=== PATIENT | female | born 1985 | race Caucasian/White ===

== ENCOUNTER 2016-04-13 10:26 | Inpatient (IN) | payer OTHER ==
[~2016-04-13] VITALS: Ht 154.9 cm; Wt 78.0 kg
[2016-04-13] VITALS (10 sets, daily range): BP systolic 93–102; BP diastolic 53–64; PULSE 89–109; RESP 18; TEMP 97.8–98.3; O2SAT 92–95
[2016-04-13] MEDS ORDERED: ACETAMINOPHEN 325 MG TAB PO ONE (11:15)
--- NOTE | 2016-04-13 11:27 | PD ---
HPI Chief Complaint Abdominal pain Travel History International Travel<30 Days: No Contact w/Intl Traveler<30Days: No Known Affected Area: No History of Present Illness HPI 30-year-old , presenting at 37.2 weeks gestation with increasing abdominal pain. OB physician is Dr. Liu. HPI: On Wednesday 04/11, she felt a gush of fluid. She went to Dr. Liu's office, and amnio assure was negative, and she had a closed cervix. Since this time she has been having intermittent lower abdominal pain. These became worse this morning at 1 AM. She says that they have increased in intensity, and have now become more frequent, occurring every 5-10 minutes. The pain radiates into her lower back. She denies any bloody show, gush of fluid, vaginal bleeding, or decreased movements. She is staying adequately hydrated, and drinking 6-8 glasses of water and Gatorade a day. She denies any fevers, chills, dysuria. She denies any blood in her urine. ROS: She has been noticing more frequent bowel movements, that are semi-formed. History Past Medical History Medical History: Denies Significant Hx Obstetric History Obstetric History Previous in 2009. Past Surgical History Surgical History: No Previous Surgery Family History Family History: Negative Social History Alcohol Use: No Tobacco Use: No Substance Abuse: No Allergies-Medications (Allergen,Severity, Reaction): Coded Allergies: No Known Allergies (Unverified , 04/13/16) Review of Systems Except as stated in HPI: all other systems reviewed are Neg Physical Exam Narrative GENERAL: Well-nourished, well-developed patient. SKIN: Warm and dry. HEAD: Normocephalic and atraumatic. EYES: No scleral icterus. No injection or drainage. ENT: No nasal drainage noted. Mucous membranes pink. Airway patent. NECK: Supple, trachea midline. No JVD. CARDIOVASCULAR: Regular rate and rhythm without murmurs, gallops, or rubs. RESPIRATORY: Breath sounds equal bilaterally. No accessory muscle use. BREASTS: Bilateral exam showed no masses , no retractions, no nipple discharge. ABDOMEN/GI: Abdomen soft, non-tender, bowel sounds present, no rebound, no guarding Gravid to 37 weeks size GENITOURINARY: Cervix is 1 cm, thick, posterior. No fluids draining/leakage. (Checked by RN). FHT's: Category: 1 Baseline: 165 Reactive: y Variability: moderate Decels: none TOCO: Periodic contractions EXTREMITIES: No cyanosis or edema. BACK: Nontender without obvious deformity. NEUROLOGICAL: Awake and alert. Motor and sensory grossly within normal limits. Data Data Orders Vital Signs (Adult) .ON ADMISSION (04/13/16 11:08) ^ Labor Status (04/13/16 11:08) Urinalysis - C+S If Indicated (04/13/16 11:08) ^ Non Stress Test (04/13/16 11:08) ^ Hydration (04/13/16 11:08) Lactated Ringer's 1000 Ml Inj (Lr 1000 M (04/13/16 11:08) Acetaminophen (Tylenol) (04/13/16 11:15) MDM Plan 30-year-old female presenting at 37.4 weeks gestation with worsening abdominal cramping. #IUP: Lower Abdominal Pain Afebrile, vital signs at goal, category 2 tracing ( tachycardia at 165, occasional decelerations), with moderate variability, + accelerations. Cervix was thick, closed, posterior. Periodic contractions on tocometry, no consistent pattern. * Tylenol 650 mg by mouth 1 * 1 L of lactated Ringer's * Check urinalysis for signs of infection #Non-Reassuring Strip Persist tachycardia to 165-170 bpm. Occasional decelerations. Periodic uterine contractions. Previous . Admit for Cesarian section 2/2 non-reassuring heart rate. We'll discuss with Dr. Enamorado. Diagnosis Diagnosis: Primary Impression: tachycardia affecting management of mother Amadeo Macdonald MD R2 Apr 13, 2016 11:27
[2016-04-13] MEDS: LACTATED RINGER'S 1000 ML INJ 1,000 ML IV SCH ×3 (11:30→21:05)
[2016-04-13 12:07] LABS: BACTERIA, URINE MANY /hpf; BLOOD, URINE NEG (NEG); COMMENT (UR) CULTURE INDICATED; CULTURE IF INDICATED CULTURE INDICATED; GLUCOSE,URINE NEG (NEG); KETONE, URINE 80 mg/dL (NEG); MUCUS URINE FEW /lpf (OCC); NITRITE,URINE NEG (NEG); SQUAMOUS EPITHELIAL CELL URINE 2 /hpf (0-5); TRANSITIONAL EPI CELLS, URINE <1 /hpf; URINE COLOR YELLOW (YELLW/STRAW)
[2016-04-13] MEDS ORDERED: LACTATED RINGER'S 1000 ML INJ 1,000 ML IV ONE (12:11)
[2016-04-13 12:24] LABS: AUTOMATED NEUTROPHIL # 12.8 TH/MM3 (1.8-7.7); BASOPHIL % 0.3 % (0.0-2.0); HEMATOCRIT 36.2 % (35.0-46.0); HEMO FLAGS DIFF FINAL; LYMPH % 4.9 % (9.0-44.0); LYMPHOCYTE # 0.7 TH/MM3 (1.0-4.8); MEAN CELL VOLUME 89.1 FL (80.0-100.0); MEAN CORPUSCULAR HEMOGLOBIN 30.2 PG (27.0-34.0); MEAN CORPUSCULAR HGB CONC 33.9 % (32.0-36.0); MONO % 6.7 % (0.0-8.0); NEUT % 88.1 % (16.0-70.0); PLATELET COUNT 202 TH/MM3 (150-450); RED BLOOD COUNT 4.07 MIL/MM3 (4.00-5.30); RED CELL DISTRIBUTION WIDTH 14.4 % (11.6-17.2); WHITE BLOOD COUNT 14.5 TH/MM3 (4.0-11.0)
--- NOTE | 2016-04-13 12:36 | HHI.HP ---
History & Physical H&P Patient Name: Jemima Olivo Unit Number: [id number] Date of : 1985 Patient Status: Admitted Inpatient Attending Doctor: Yoselyn Liu MD HPI HPI Chief Complaint Abdominal pain Travel History International Travel<30 Days: No Contact w/Intl Traveler<30Days: No Known Affected Area: No History of Present Illness HPI 30-year-old , presenting at 37.2 weeks gestation with increasing abdominal pain. OB physician is Dr. Liu. HPI: On Wednesday 04/11, she felt a gush of fluid. She went to Dr. Liu's office, and amnio assure was negative, and she had a closed cervix. Since this time she has been having intermittent lower abdominal pain. These became worse this morning at 1 AM. She says that they have increased in intensity, and have now become more frequent, occurring every 5-10 minutes. The pain radiates into her lower back. She denies any bloody show, gush of fluid, vaginal bleeding, or decreased movements. She is staying adequately hydrated, and drinking 6-8 glasses of water and Gatorade a day. She denies any fevers, chills, dysuria. She denies any blood in her urine. ROS: She has been noticing more frequent bowel movements, that are semi-formed. History (Limited) History Past Medical History Medical History: Denies Significant Hx Obstetric History Obstetric History Previous in 2009. Past Surgical History Surgical History: No Previous Surgery Family History Family History: Negative Social History Alcohol Use: No Tobacco Use: No Substance Abuse: No Allergies-Medications Allergies-Medications (Allergen,Severity, Reaction): Coded Allergies: No Known Allergies (Unverified , 04/13/16) ROS Review of Systems Except as stated in HPI: all other systems reviewed are Neg Physical Exam Physical Exam Narrative GENERAL: Well-nourished, well-developed patient. SKIN: Warm and dry. HEAD: Normocephalic and atraumatic. EYES: No scleral icterus. No injection or drainage. ENT: No nasal drainage noted. Mucous membranes pink. Airway patent. NECK: Supple, trachea midline. No JVD. CARDIOVASCULAR: Regular rate and rhythm without murmurs, gallops, or rubs. RESPIRATORY: Breath sounds equal bilaterally. No accessory muscle use. BREASTS: Bilateral exam showed no masses , no retractions, no nipple discharge. ABDOMEN/GI: Abdomen soft, non-tender, bowel sounds present, no rebound, no guarding Gravid to 37 weeks size GENITOURINARY: Cervix is 1 cm, thick, posterior. No fluids draining/leakage. (Checked by RN). FHT's: Category: 1 Baseline: 165 Reactive: y Variability: moderate Decels: none TOCO: Periodic contractions EXTREMITIES: No cyanosis or edema. BACK: Nontender without obvious deformity. NEUROLOGICAL: Awake and alert. Motor and sensory grossly within normal limits. Data Data Data Orders Vital Signs (Adult) .ON ADMISSION (04/13/16 11:08) ^ Labor Status (04/13/16 11:08) Urinalysis - C+S If Indicated (04/13/16 11:08) ^ Non Stress Test (04/13/16 11:08) ^ Hydration (04/13/16 11:08) Lactated Ringer's 1000 Ml Inj (Lr 1000 M (04/13/16 11:08) Acetaminophen (Tylenol) (04/13/16 11:15) MDM MDM Plan 30-year-old female presenting at 37.4 weeks gestation with worsening abdominal cramping. #IUP: Lower Abdominal Pain - 37.4 weeks gestation Afebrile, vital signs at goal, category 2 tracing ( tachycardia at 165, occasional decelerations), with moderate variability, + accelerations. Cervix was thick, closed, posterior. Periodic contractions on tocometry, no consistent pattern. * Tylenol 650 mg by mouth 1 * 1 L of lactated Ringer's * Check urinalysis for signs of infection # Non-reassuring Strip Persist tachycardia to 165-170 bpm. Occasional decelerations. Periodic uterine contractions. Admit for Cesarian section 2/2 non-reassuring strip. We'll discuss with Dr. Enamorado. Diagnosis Diagnosis: Primary Impression: tachycardia affecting management of mother Amadeo Macdonald MD R2 Apr 13, 2016 12:36
[2016-04-13] MEDS ORDERED: LACTATED RINGER'S 1000 ML INJ 1,000 ML IV SCH (12:41)
[2016-04-13] MEDS ORDERED: ceFAZolin 2 GM PREMIX 50 ML IV SCH (13:15)
[2016-04-13] MEDS ORDERED: ONDANSETRON HCL 4 MG/2 ML VIAL ONE (13:30)
[2016-04-13] MEDS ORDERED: MORPHINE SULFATE PF 5 MG/10 ML VIAL ONE (13:30)
[2016-04-13] MEDS ORDERED: ACETAMINOPHEN 1000 MG/100 ML VIAL IV ONE ×2 (13:30→15:00)
[2016-04-13] MEDS ORDERED: CITRIC ACID-SODIUM CITRATE LIQ 30 ML UDC PO SCH (13:45)
[2016-04-13] MEDS ORDERED: SIMETHICONE 80 MG CHEWABLE TAB PO PRN (15:00)
[2016-04-13] MEDS ORDERED: ZOLPIDEM TARTRATE 5 MG TAB PO PRN (15:00)
[2016-04-13] MEDS ORDERED: DOCUSATE SODIUM 50 MG/SENNA 8.6 MG TAB PO PRN (15:00)
[2016-04-13] MEDS ORDERED: SODIUM CHLORIDE 0.9% FLUSH 5 ML FLUSH IV PRN (15:00)
[2016-04-13] MEDS ORDERED: ONDANSETRON HCL 4 MG/2 ML VIAL IV PUSH PRN (15:00)
[2016-04-13] MEDS ORDERED: OXYTOCIN 30 UNITS-500ML PREMIX 500 ML IV ONE ×2 (15:00)
[2016-04-13] MEDS ORDERED: oxyCODONE/ACETAMINOPHEN 5 MG/325 MG TAB PO PRN ×2 (15:00)
--- NOTE | 2016-04-13 15:47 | MP ---
cc: Yoselyn LIU MD DATE OF SURGERY: 04/13/2016. PREOPERATIVE DIAGNOSIS: 1. Intrauterine at 37+ weeks. 2. Previous section. 3. Non-reassuring strip. POSTOPERATIVE DIAGNOSIS: 1. Intrauterine at 37+ weeks. 2. Previous section. 3. Non-reassuring strip. 4. Anterior placenta. OPERATIVE PROCEDURE PERFORMED: Repeat low transverse section. SURGEON: Yoselyn Liu MD. ANESTHESIA: Spinal. FINDINGS: ANESTHESIA: A normal male infant, Apgars 8 and 9. Weight 7 pounds 0 ounces. Vacuum x1. Cord around the shoulder loose. The placenta was anterior and it had to be cut through to get to the infant. COMPLICATIONS The complications were anterior placenta. ESTIMATED BLOOD LOSS: The blood loss was 600 mL. COUNTS: The counts were correct. CONDITION: The patient tolerated procedure well. She and the baby both went to the recovery room in good condition. INDICATIONS FOR THE PROCEDURE: This lady came in and was some uterine contractions. She was having tachycardia in the 170s and she also had several one to two minute decelerations. Since she had had a previous section, the choice was easy since her cervix was 1 cm and closed we decided to proceed with a repeat section. DESCRIPTION OF THE PROCEDURE IN DETAIL: Under an adequate level of anesthetic, she was prepped and draped for abdominal surgery. The old Pfannenstiel incision was removed and excised completely. Incision was taken down to the fascia. The fascia was taken off the rectus muscle by blunt and sharp dissection. Once this had been accomplished, the rectus muscles were gently stretched and the peritoneum entered under direct vision without incident. A bladder flap was created over the lower uterine segment and the bladder moved out of harms way. The incision over the uterus was made in a transverse manner and taken down in the midline until the uterine cavity was entered. The vertex was grasped and using suction, the was delivered with gentle fundal pressure. The hypopharynx and nasopharynx were suctioned and the cord was doubly clamped and cut and the was handed to the resuscitation team present. The placenta was removed manually. The uterus was curettaged twice with wet laps and irrigated with a moderate amount of fluid. The uterine incision was then repaired with 2-0 Vicryl in a running locking fashion, the second layer imbricating the first. Hemostasis was excellent. At this time, the uterus was delivered back into the abdomen. The rectus muscle was reapproximated with 0 Vicryl in an interrupted fashion. The fascia was repaired from lateral to midline with 0 Vicryl bilaterally with 0 Vicryl in a running fashion. Subcu was repaired with 3-0 Vicryl. The skin was repaired with a 4-0 Monocryl in a subcuticular fashion. Steri-Strips were applied. She tolerated the procedure well and was taken to the Recovery Room in good condition. R. MD JR [place]/RUBI /2:54 PM /3:37 PM
[2016-04-13] MEDS ORDERED: OXYTOCIN 30 UNITS-500ML PREMIX 500 ML ONE (15:48)
[2016-04-13] MEDS ORDERED: EPIDURAL-NO SYSTEMIC NARCOTICS XX PRN (17:30)
[2016-04-13] MEDS ORDERED: EPIDURAL-NALOXONE HCL 0.4 MG/ML AMP IV PRN (17:30)
[2016-04-13] MEDS ORDERED: EPIDURAL-DO NOT ADMINISTER ANTICOAGULANTS XX PRN (17:30)
[2016-04-13] MEDS ORDERED: EPIDURAL-DIPHENHYDRAMINE HCL 50 MG/ML VIAL IV PUSH PRN (17:30)
[2016-04-13] MEDS ORDERED: EPIDURAL-DIPHENHYDRAMINE HCL 50 MG CAP PO PRN (17:30)
--- NOTE | 2016-04-13 19:02 | HHI.DCPOC ---
Discharge Care Plan Diagnosis: (1) S/P section Your Health Problems Are: delivery Report Symptoms to Your Doctor -Temperate above 100.5 degrees -Redness, of incision or excessive or foul smelling drainage -Unusual pain or calf pain -Increased vaginal bleeding -Painful or difficulty urinating -Feelings of extreme sadness or anxiety after 2 weeks Goals to Promote Your Health * To prevent worsening of your condition and complications * To maintain your health at the optimal level Directions to Meet Your Goals Take your medications as prescribed Follow your dietary instruction Follow activity as directed Ensure plenty of rest for recovery Drink fluids for hydration Keep your appointments as scheduled Take your immunizations and boosters as scheduled If your symptoms worsen call your PCP, if no PCP go to Urgent Care Center or Emergency Room Smoking is Dangerous to Your Health. Avoid second hand smoke Call the 24-hour crisis hotline for domestic abuse at Criss Masters MD Apr 13, 2016 19:02
[2016-04-13] MEDS ORDERED: SODIUM CHLORIDE 0.9% FLUSH 5 ML FLUSH IV SCH (21:00)
[2016-04-14] MEDS ORDERED: OXYTOCIN 30 UNITS-500ML PREMIX 500 ML IV PRN (01:00)
[2016-04-14] MEDS: IBUPROFEN 600 MG TAB PO PRN ×2 (05:02→14:38)
[2016-04-14 05:26] LABS: AUTOMATED NEUTROPHIL # 9.7 TH/MM3 (1.8-7.7); BASOPHIL % 0.2 % (0.0-2.0); EOSINOPHIL % 0.1 % (0.0-4.0); HEMATOCRIT 29.1 % (35.0-46.0); HEMO FLAGS DIFF FINAL; LYMPH % 10.4 % (9.0-44.0); LYMPHOCYTE # 1.2 TH/MM3 (1.0-4.8); MEAN CELL VOLUME 87.2 FL (80.0-100.0); MEAN CORPUSCULAR HEMOGLOBIN 30.5 PG (27.0-34.0); MONO % 7.3 % (0.0-8.0); PLATELET COUNT 165 TH/MM3 (150-450); RED BLOOD COUNT 3.34 MIL/MM3 (4.00-5.30); RED CELL DISTRIBUTION WIDTH 14.4 % (11.6-17.2); WHITE BLOOD COUNT 11.8 TH/MM3 (4.0-11.0)
[2016-04-14] MEDS: LACTATED RINGER'S 1000 ML INJ 1,000 ML IV SCH (05:50)
[2016-04-14 07:00] VITALS: BP 79/51; PULSE 83; RESP 16; TEMP 97.8
--- NOTE | 2016-04-14 10:33 | HHI.OB ---
Subjective Post Operative Day: 1 Remarks s/p repeat CD with Dr. Liu Objective Vitals/I&O Vital Signs Date Time Temp Pulse Resp B/P Pulse Ox O2 Delivery O2 Flow Rate FiO2 04/14/16 07:00 97.8 04/14/16 07:00 83 16 79/51 04/13/16 16:00 98.3 04/13/16 15:52 94 04/13/16 15:45 93 04/13/16 15:45 18 102/64 93 04/13/16 15:28 105 18 99/53 92 04/13/16 15:13 89 18 102/60 95 04/13/16 14:50 97.8 04/13/16 12:25 105 04/13/16 12:24 98.3 103 93/59 04/13/16 12:20 105 04/13/16 12:15 109 Result Diagram: 04/14/16 0433 Objective Remarks GENERAL: Well-nourished, well-developed patient. CARDIOVASCULAR: Regular rate and rhythm without murmurs, gallops, or rubs. RESPIRATORY: Breath sounds equal bilaterally. No accessory muscle use. ABDOMEN/GI: Abdomen soft, non-tender, bowel sounds present. Incision: bandage clean, dry and intact. Fundus: Firm, non-tender at umbilicus. GENITOURINARY: Light bleeding. EXTREMITIES: No cyanosis or edema, non-tender, without signs of DVT. Medications and IVs Current Medications Medications (Trade) Dose Ordered Sig/Richard Route Start Time Stop Time Status Last Admin (Lr 1000 ml Inj) 1,000 ml @ 100 mls/hr Q10H IV 04/13/16 19:50 04/14/16 15:49 04/13/16 21:05 (NS Flush) 2 ml BID IV 04/13/16 21:00 (NS Flush) 2 ml UNSCH PRN IV 04/13/16 15:00 (Mylicon Chew) 80 mg QID PRN PO 04/13/16 15:00 (Motrin) 600 mg Q6H PRN PO 04/13/16 15:00 04/14/16 05:02 (Percocet 5-325 Mg) 1 tab Q4H PRN PO 04/13/16 15:00 (Percocet 5-325 Mg) 2 tab Q4H PRN PO 04/13/16 15:00 (Morena-Colace) 2 tab Q12H PRN PO 04/13/16 15:00 (Ambien) 5 mg HS PRN PO 04/13/16 15:00 (M-M-R Ii Inj) 0.5 ml ONCE ONCE SQ 04/14/16 16:00 04/14/16 16:01 (Boostrix Inj) 0.5 ml ONCE ONCE IM 04/14/16 16:00 04/14/16 16:01 (Zofran Inj) 4 mg Q6H PRN IV PUSH 04/13/16 15:00 Miscellaneous Information NO SYSTEMIC NARCOTICS TO BE GIVEN FO... UNSCH PRN XX 04/13/16 17:30 04/14/16 17:29 (Narcan Inj) 0.4 mg UNSCH PRN IV 04/13/16 17:30 04/14/16 17:29 (Benadryl Inj) 25 mg Q6H PRN IV PUSH 04/13/16 17:30 04/14/16 17:29 (Benadryl) 50 mg Q6H PRN PO 04/13/16 17:30 04/14/16 17:29 Miscellaneous Information ALL NURSING DEPARTMENTS UNSCH PRN XX 04/13/16 17:30 04/14/16 17:29 Assessment/Plan Problem List: (1) S/P section Assessment and Plan POD#1/PPD#1 routine care, doing well, eating, voiding, tolerating diet, pain well controlled BP's running low but pt asymptomatic, continue to monitor routine d/c planning for circ, will need to call Dr. Polanco's office to schedule next week Discharge Planning routine Criss Masters MD Apr 14, 2016 10:33
[2016-04-14] MEDS ORDERED: SENN1TAB PO (10:34)
[2016-04-14] MEDS ORDERED: IBUP-232 PO (10:34)
[2016-04-14] MEDS ORDERED: OXYC1TAB63 PO (10:34)
[2016-04-14] MEDS ORDERED: DIPHTH/TETANUS/ACEL PERTUSSIS (BOOSTER) 0.5 ML VIAL/PFS IM ONE (16:00)
[2016-04-14] MEDS ORDERED: MEASLES, MUMPS, RUBELLA VACCINE 0.5 ML VIAL SQ ONE (16:00)
[2016-04-15] MEDS: IBUPROFEN 600 MG TAB PO PRN ×2 (02:59→12:39)
[2016-04-15 04:30] VITALS: RESP 18
--- NOTE | 2016-04-15 08:43 | HHI.OB ---
Subjective Post Operative Day: [address] crabtree Doing well, no symptoms from low bp. desires to be d/c Objective Vitals/I&O Vital Signs Date Time Temp Pulse Resp B/P Pulse Ox O2 Delivery O2 Flow Rate FiO2 04/15/16 04:30 18 Result Diagram: 04/14/16 0433 Objective Remarks GENERAL: Well-nourished, well-developed patient. CARDIOVASCULAR: Regular rate and rhythm without murmurs, gallops, or rubs. RESPIRATORY: Breath sounds equal bilaterally. No accessory muscle use. ABDOMEN/GI: Abdomen soft, non-tender, bowel sounds present. Incision: clean, dry and intact. Fundus: Firm, non-tender at umbilicus. GENITOURINARY: Light bleeding. EXTREMITIES: No cyanosis or edema, non-tender, without signs of DVT. Medications and IVs Current Medications Medications (Trade) Dose Ordered Sig/Richard Route Start Time Stop Time Status Last Admin (NS Flush) 2 ml BID IV 04/13/16 21:00 (NS Flush) 2 ml UNSCH PRN IV 04/13/16 15:00 (Mylicon Chew) 80 mg QID PRN PO 04/13/16 15:00 (Motrin) 600 mg Q6H PRN PO 04/13/16 15:00 04/15/16 02:59 (Percocet 5-325 Mg) 1 tab Q4H PRN PO 04/13/16 15:00 (Percocet 5-325 Mg) 2 tab Q4H PRN PO 04/13/16 15:00 (Morena-Colace) 2 tab Q12H PRN PO 04/13/16 15:00 04/15/16 02:59 (Ambien) 5 mg HS PRN PO 04/13/16 15:00 (Zofran Inj) 4 mg Q6H PRN IV PUSH 04/13/16 15:00 Assessment/Plan Problem List: (1) S/P section Assessment and Plan POD/PPD#2 routine care, doing well, eating, voiding, tolerating diet, pain well controlled BP's running low but pt asymptomatic, continue to monitor routine d/c planning infant for circ, will need to call Dr. Polanco's office to schedule next week Discharge Planning routine Joanne Cole MD Apr 15, 2016 08:43
== END 2016-04-15 15:31 | disposition home or self-care (01) | DRG 766 ==
LOC: HOBED 10:26 → H2EB 12:18 → H1EA 16:16
PROVIDERS: ADMIT Obstetrics & Gynecology; ATTEND Obstetrics & Gynecology
PROC: 10D00Z1 Extraction of Products of Conception, Low, Open Approach (ICD-10-PCS; principal; 2016-04-13)
DX: O34.211 Maternal care for low transverse scar from previous cesarean delivery (principal); O76 Abnormality in fetal heart rate and rhythm complicating labor and delivery; Z37.0 Single live birth; Z3A.37 37 weeks gestation of pregnancy
CPT/HCPCS: 59025; 81001; 85025; 86850; 86900; 86901; 87086; 90715; 99285; J0131; J0690; J2274; J2405; J2590; J7120